=== PATIENT | female | born 1960 | race Two or more races ===

== ENCOUNTER 2017-02-08 17:26 | Emergency (ER) | payer BC ==
[2017-02-08] MEDS ORDERED: Acetaminophen TAB* 325 MG PO ONE (18:47)
[2017-02-08 19:00] VITALS: BP 138/88
--- NOTE | 2017-02-08 19:53 | RAD ---
Indication: RIGHT hip pain radiating down the RIGHT leg and to the lower back. Comparison: January 30, 2004 CT. Technique: AP pelvis and AP and frog-leg lateral views RIGHT hip. Report: The RIGHT hip is normally located and demonstrates preserved joint space. Negative for RIGHT proximal femur or stress reaction or fracture. Minimal bilateral femoral head neck osteophytosis. Negative for pelvic fracture or joint diastases. Unremarkable soft tissue contours. 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
--- NOTE | 2017-02-08 20:01 | RAD ---
Indication: RIGHT lateral hip region pain radiating to the lower back. Comparison: January 30, 2004 CT Technique: AP, lateral, and oblique views lumbar sacral spine. Report: Alignment is anatomic. No cortical disruption or trabecular impaction to indicate a vertebral body fracture. Oblique views without evidence for spondylolysis. Preserved disc spaces. Unremarkable soft tissue contours. IMPRESSION: Negative exam
[2017-02-08] MEDS ORDERED: Ibuprofen TAB* 800 MG PO ONE (20:41)
[2017-02-08] MEDS ORDERED: Cyclobenzaprine TAB* 10 MG PO ONE (20:41)
--- NOTE | 2017-02-17 11:02 | ED ---
Lower Extremity - HPI Summary HPI Summary: Pt here w/ Rt LE pain today - radiates from hip all the way down into toes. No numbness, tingling, weakness. No previous dx of back issues, but has had problems in the past. Denies acute injury to back or leg and no prolonged sitting, hormones, smoking, coagulopathies. Has not tried anything yet as she wasn't sure what was happening. No change in bowel/bladder issues. Pain is worse w/ back, hip movements. She is able to ambulate. - History of Current Complaint Chief Complaint: EDGeneral Stated Complaint: LEG PAIN Time Seen by Provider: 02/08/17 17:45 Hx Obtained From: Patient, Family/Peer Specialist - partner Pain Intensity: 5 Pain Scale Used: 0-10 Numeric - Allergies/Home Medications Allergies/Adverse Reactions: Allergies Allergy/AdvReac Type Severity Reaction Status Date / Time No Known Allergies Allergy Verified 07/21/16 15:28 PMH/Surg Hx/FS Hx/Imm Hx Previously Healthy: Yes Endocrine/Hematology History: Reports: Hx Thyroid Disease Denies: Hx Anticoagulant Therapy, Hx Blood Disorders, Hx Diabetes, Hx Coagulopothy Cardiovascular History: Reports: Hx Hypercholesterolemia, Hx Hypertension Denies: Hx Congestive Heart Failure, Hx Pacemaker/ICD, Other Cardiovascular Problems/Disorders Respiratory History: Reports: Hx Asthma Denies: Hx Chronic Obstructive Pulmonary Disease (COPD) GI History: Denies: Hx Ulcer Musculoskeletal History: Denies: Hx Rheumatoid Arthritis, Hx Osteoporosis - OSTEOPENIA Sensory History: Denies: Hx Hearing Aid Psychiatric History: Denies: Hx Panic Disorder - Surgical History Surgery Procedure, Year, and Place: 1984, 1989 - C-Sections; [facility] Infectious Disease History: No Infectious Disease History: Denies: Hx Clostridium Difficile, Hx Hepatitis, Hx Human Immunodeficiency Virus (HIV), Hx of Known/Suspected MRSA, Hx Shingles, Hx Tuberculosis, Hx Known/ Suspected VRE, Hx Known/Suspected VRSA, History Other Infectious Disease, Traveled Outside the [place] in Last 30 Days - Family History Known Family History: Positive: Hypertension, Respiratory Disease Family History: Father: Blood clot - Social History Lives: With Family Alcohol Use: Rare Hx Substance Use: No Substance Use Type: Reports: None Hx Tobacco Use: Yes Smoking Status (MU): Former Smoker Type: eCigaretteboni Amount Used/How Often: sometimes during each day Length of Time of Smoking/Using Tobacco: 33 years Have You Smoked in the Last Year: No Review of Systems Negative: Fever, Chills Negative: Chest Pain Negative: Shortness Of Breath Gastrointestinal: Negative Positive: no symptoms reported Musculoskeletal: Other - see HPI Skin: Negative Neurological: Negative Psychological: Normal - concerned All Other Systems Reviewed And Are Negative: Yes Physical Exam Triage Information Reviewed: Yes Vital Signs On Initial Exam: Initial Vitals Temp Pulse Resp BP Pulse Ox 98.3 F 82 20 161/79 99 02/08/17 17:28 02/08/17 17:28 02/08/17 17:28 02/08/17 17:28 02/08/17 17:28 Vital Signs Reviewed: Yes Appearance: Positive: Well-Appearing, Pain Distress - mild, Obese Skin: Positive: Warm, Dry - no erythema, no streaking, no varices Head/Face: Positive: Normal Head/Face Inspection Eyes: Positive: Normal, EOMI, Conjunctiva Clear ENT: Positive: Hearing grossly normal Respiratory/Lung Sounds: Positive: Breath Sounds Present Cardiovascular: Positive: Normal, Pulses are Symmetrical in both Upper and Lower Extremities. Negative: Leg Edema Left, Leg Edema Right Musculoskeletal: Positive: Strength/ROM Intact, Pain @ - Rt greater trochanter, SI joint are TTP - leg itself is NTTP; spinous pp NTTP Neurological: Positive: Normal, Sensory/Motor Intact, Alert, Oriented to Person Place, Time, CN Intact II-III Psychiatric: Positive: Normal Diagnostics - Vital Signs Vital Signs Temp Pulse Resp BP Pulse Ox 02/08/17 21:06 97.8 F 68 16 02/08/17 18:59 85 138/88 100 02/08/17 18:04 97.6 F 80 16 116/84 97 02/08/17 17:28 98.3 F 82 20 161/79 99 - Laboratory Lab Statement: Any lab studies that have been ordered have been reviewed, and results considered in the medical decision making process. Re-Evaluation - Re-Evaluation First Eval Change: Improved - leg pain improved s/p tylenol - foot sx resolved Lower Extremity Course/Dx - Diagnoses Provider Diagnoses: Arthritis of right hip, Muscle spasm Discharge - Discharge Plan Condition: Stable Disposition: HOME Prescriptions: Cyclobenzaprine TAB* [Flexeril 10 MG TAB*] 10 mg PO TID PRN #9 tab PRN Reason: Pain Patient Education Materials: Osteoarthritis (ED), Muscle Spasm (ED) Referrals: Joel Lvoe MD [Primary Care Provider] - Additional Instructions: Rest You appear to have a flair up of arthritis with muscle spasm. You may apply ice alternating with heat and gentle stretches. You may also try topical rubs along thigh (ie. biofreeze, etc) You may take acetaminophen alternating with ibuprofen with food for pain. If muscle feels tight and you have difficulty sleeping, you may take a muscle relaxer - this has been sent to pharmacy for you. Follow-up with your PCP next week - call tomorrow to schedule an appointment. *If you develop numbness, weakness return to ED
== END 2017-02-08 21:06 | disposition home or self-care (01) ==
LOC: ED 17:26
DX: M16.11 Unilateral primary osteoarthritis, right hip (principal); M79.604 Pain in right leg; Z87.891 Personal history of nicotine dependence; M62.838 Other muscle spasm
CPT/HCPCS: 72110; 99282; A9270-GY

== ENCOUNTER 2019-09-02 09:18 | Emergency (ER) | payer BC ==
[2019-09-02] MEDS ORDERED: NS 0.9% 1000 ML** 1,000 ML IV ONE (09:42)
[2019-09-02] MEDS ORDERED: Albuterol/Ipratropium NEB.SOL* Albuterol 2.5 MG/Ipratropium 0.5 MG 3 ML INH ONE (09:42)
[2019-09-02] MEDS ORDERED: methylPREDNISolone 125 MG* 2 ML VIAL IV ONE (09:42)
--- NOTE | 2019-09-02 09:49 | ED ---
Respiratory - HPI Summary HPI Summary: This pt is a 58 y/o female, with hx of asthma, COPD, presenting to [facility] c/o nonproductive cough that began 2 days ago. Pt also reports SOB that became worse this morning. She states this morning she had a difficult time breathing. She notes her chest felt tight with coughing. Pt took Mucinex last night with mild relief, states her cough started loosing up this morning. Denies fever, chills, nausea, vomiting. PMHx includes HTN, thyroid disease, high cholesterol. Pt is a current smoker. - History of Current Complaint Chief Complaint: EDAsthma Stated Complaint: SOB PER PT Time Seen by Provider: 09/02/19 09:38 Hx Obtained From: Patient Onset/Duration: Lasting Days, Still Present, Worse Since - this morning Timing: Constant Current Severity: Moderate Pain Intensity: 6 Character: Cough (Nonproductive) Aggravating Factor(s): Nothing Alleviating Factor(s): Nothing Associated Signs and Symptoms: SOB, Chest Pain with Cough - Allergy/Home Medications Allergies/Adverse Reactions: Allergies Allergy/AdvReac Type Severity Reaction Status Date / Time No Known Allergies Allergy Verified 09/02/19 09:21 Home Medications: Home Medications Albuterol HFA INHALER* [Ventolin HFA Inhaler*] 1 - 2 puff INH Q4H PRN 09/02/19 [ History Confirmed 09/02/19] Budesonide/Formote 160/4.5(NF) [Symbicort 160/4.5 (NF)] 2 puff INH BID 09/02/19 [History Confirmed 09/02/19] Doxycycline Hyclate 100 mg PO DAILY 09/02/19 [History Confirmed 09/02/19] Hydrochlorothiazide TAB* [Hydrodiuril TAB*] 12.5 mg PO DAILY 09/02/19 [History Confirmed 09/02/19] Valsartan TAB* [Diovan TAB*] 160 mg PO DAILY 09/02/19 [History Confirmed ] PMH/Surg Hx/FS Hx/Imm Hx Endocrine/Hematology History: Reports: Hx Thyroid Disease Denies: Hx Anticoagulant Therapy, Hx Blood Disorders, Hx Diabetes Cardiovascular History: Reports: Hx Hypercholesterolemia, Hx Hypertension Denies: Hx Congestive Heart Failure, Hx Pacemaker/ICD, Other Cardiovascular Problems/Disorders Respiratory History: Reports: Hx Asthma, Hx Chronic Obstructive Pulmonary Disease (COPD) GI History: Denies: Hx Ulcer Musculoskeletal History: Denies: Hx Rheumatoid Arthritis, Hx Osteoporosis Sensory History: Denies: Hx Hearing Aid Psychiatric History: Denies: Hx Panic Disorder - Surgical History Surgical History: Yes Surgery Procedure, Year, and Place: 1984, 1989 - [facility]; [facility] 2013 Infectious Disease History: No Infectious Disease History: Denies: Hx Clostridium Difficile, Hx Hepatitis, Hx Human Immunodeficiency Virus (HIV), Hx of Known/Suspected MRSA, Hx Shingles, Hx Tuberculosis, Hx Known/ Suspected VRE, Hx Known/Suspected VRSA, History Other Infectious Disease, Traveled Outside the [place] in Last 30 Days - Family History Known Family History: Positive: Hypertension, Respiratory Disease Family History: Father: Blood clot - Social History Alcohol Use: Rare Hx Substance Use: No Substance Use Type: Reports: None Hx Tobacco Use: Yes Smoking Status (MU): Current Every Day Smoker Type: eCigarettes Amount Used/How Often: sometimes during each day Length of Time of Smoking/Using Tobacco: 33 years Have You Smoked in the Last Year: No Cessation Counseling: Patient Advised to Stop Review of Systems Negative: Fever, Chills Positive: Chest Pain Positive: Shortness Of Breath, Cough All Other Systems Reviewed And Are Negative: Yes Physical Exam - Summary Physical Exam Summary: GENERAL: Patient is a well-developed and nourished female who is lying comfortable in the stretcher. Patient is not in any acute respiratory distress. HEAD AND FACE: No signs of trauma. No ecchymosis, hematomas or skull depressions. No sinus tenderness. EYES: PERRLA, EOMI x 2, No injected conjunctiva, no nystagmus. EARS: Hearing grossly intact. Ear canals and tympanic membranes are within normal limits. MOUTH: Oropharynx within normal limits. NECK: Supple, trachea is midline, no adenopathy, no JVD, no carotid bruit, no c- spine tenderness, neck with full ROM. CHEST: Symmetric, no tenderness at palpation LUNGS: Decreased breath sounds bilaterally. Wheezing. CVS: Regular rate and rhythm, S1 and S2 present, no murmurs or gallops appreciated. ABDOMEN: Soft, non-tender. No signs of distention. No rebound no guarding, and no masses palpated. Bowel sounds are normal. EXTREMITIES: FROM in all major joints, no edema, no cyanosis or clubbing. NEURO: Alert and oriented x 3. No acute neurological deficits. Speech is normal and follows commands. SKIN: Dry and warm Triage Information Reviewed: Yes Vital Signs On Initial Exam: Initial Vitals Temp Pulse Resp BP Pulse Ox 97.2 F 108 22 151/95 96 09/02/19 09:19 12 09:19 12 09:19 09/02/19 09:19 09/02/19 09:19 Vital Signs Reviewed: Yes Procedures - Sedation Patient Received Moderate/Deep Sedation with Procedure: No Diagnostics - Vital Signs Vital Signs Temp Pulse Resp BP Pulse Ox 09/02/19 09:19 97.2 F 108 22 151/95 96 - Laboratory Result Diagrams: 09/02/19 10:01 09/02/19 10:01 Lab Statement: Any lab studies that have been ordered have been reviewed, and results considered in the medical decision making process. - Radiology Chest XR Radiology Interpretation Completed By: Radiologist Summary of Radiographic Findings: IMPRESSION: No evidence for active cardiopulmonary disease. Dr. Coley has reviewed this report. - EKG 09:52 Cardiac Rate: NL - at 95 bpm EKG Rhythm: Sinus Rhythm EKG Comparison: No Significant Change - similar to prior on 03/24/16. Summary of EKG Findings: EKG at 09:52 shows normal sinus rhythm at a rate of [address] elevations. Similar to previous EKG. Re-Evaluation - Re-Evaluation First Eval Re-Evaluation Time: 12:49 Change: Improved Comment: Pt is feeling better after medications. She was advised to stop smoking. Pt will be discharged home. Disposition - Course Assessment/Plan: This patient is a 58-year-old female who presents to the emergency department with a chief complaint of having shortness of breath and productive cough. Past medical history: Asthma, COPD, hypertension, hypothyroidism. Blood work without a significant abnormality except for chloride 100, glucose 104, and CRP of 9.3. Chest x-ray impression: no acute pathology. In the ED course the patient was given IV fluids, DuoNebs and Solu- Medrol. After the patient was given these medications the patients symptoms have subsided. The patient is feeling better and has no other complaints. I discussed all the findings and test results with the patient. Patient was instructed to return to the emergency room immediately if any of the symptoms return or worsen . Plan of care was discussed with the patient and understands and agrees. All questions were answered at patient satisfaction. There were no further complaints or concerns. Lung exam before discharge: CTA B/L. Good air exchange. No wheezing or crackles heard. CVS: S1 and S2 present. No murmurs appreciated. Patient is alert and oriented x 3. Patient is hemodynamically stable. Patient will be discharged home with follow up from her PCP in the next 2-3 days. - Differential Dx - Cardiopulmonary Differential Diagnoses - Cardiopulmonary: Asthma, CHF, Exacerbation Of COPD, Hypoxia, Sinusitis - Diagnoses Provider Diagnoses: COPD exacerbation Discharge ED - Sign-Out/Discharge Documenting (check all that apply): Patient Departure - Discharge home - Discharge Plan Condition: Stable Disposition: HOME Prescriptions: predniSONE TAB* [Deltasone 20 MG TAB*] 40 mg PO DAILY #10 tab Patient Education Materials: How to Stop Smoking (ED), COPD (Chronic Obstructive Pulmonary Disease) (ED) Forms: *Work Release Referrals: Joel Love MD [Primary Care Provider] - Additional Instructions: FOLLOW UP WITH YOUR PRIMARY CARE PROVIDER IN 2-3 DAYS. RETURN TO THE EMERGENCY DEPARTMENT FOR ANY WORSENING OR NEW SYMPTOMS. - Billing Disposition and Condition Condition: STABLE Disposition: Home - Attestation Statements Document Initiated by Anne: Yes Documenting Shardaibe: Manuela Montgomery Provider For Whom Anne is Documenting (Include Credential): Carl Coley MD Scribvictorina Attestation: Manuela Maya scribed for Carl Coley MD on 09/03/19 at 1838. Scribe Documentation Reviewed: Yes Provider Attestation: The documentation as recorded by the Manuela carlos accurately reflects the service I personally performed and the decisions made by , Carl Coley MD Status of Scribe Document: Viewed
[2019-09-02] MEDS ORDERED: Albuterol/Ipratropium NEB.SOL* Albuterol 2.5 MG/Ipratropium 0.5 MG 3 ML ONE (10:04)
[2019-09-02 10:16] LABS: ABS Eosinophils 0.2 10^3/ul (0-0.6); ABS Lymphocytes 1.2 10^3/ul (1.0-4.8); ABS Monocytes 0.7 10^3/ul (0-0.8); ABS Neutrophils 4.7 10^3/ul (1.5-7.7); Eosinophil % 3.6 %; Hematocrit 43 % (35-47); Hemoglobin 14.1 g/dL (12.0-16.0); Lymphocyte % 17.5 %; Mean Corpuscular HGB Conc 33 g/dL (31-36); Mean Corpuscular Hemoglobin 28 pg (27-31); Mean Corpuscular Volume 84 fL (80-97); Mean Platelet Volume 9.1 fL (7.4-10.4); Nucleated Red Blood Cells % 0.1; Platelet Count 245 10^3/uL (150-450); Red Cell Distribution Width 14 % (10-15); White Blood Count 6.8 10^3/uL (3.5-10.8)
[2019-09-02 10:38] LABS: Albumin 4.5 g/dL (3.2-5.2); Albumin/Globulin Ratio 1.5 (1-3); BUN/Creatinine Ratio 12.9 (8-20); C Reactive Protein 9.3 mg/L (<8.01); Calcium 9.8 mg/dL (8.6-10.3); EGFR African American 83.4 (>60); EGFR Non-African American 68.9 (>60); Potassium 3.6 mmol/L (3.5-5.0); Total Bilirubin 0.4 mg/dL (0.2-1.0); Total Protein 7.5 g/dL (6.4-8.9)
[2019-09-02 11:02] LABS: Urine Appearance Clear; Urine Bilirubin Negative (Negative); Urine Blood Negative (Negative); Urine Color Yellow; Urine Glucose Negative (Negative); Urine Ketones Negative (Negative); Urine Nitrite Negative (Negative); Urine Protein Negative (Negative); Urine Specific Gravity 1.012 (1.010-1.030); Urine Urobilinogen Negative (Negative)
[2019-09-02 11:07] LABS: Urine Bacteria Absent (Absent); Urine Red Blood Cell 1+(3-5/hpf) (Absent); Urine Squamous Epithelial Cell Present (Absent); Urine White Blood Cell Trace(0-5/hpf) (Absent)
[2019-09-02 13:07] VITALS: BP 147/76
--- NOTE | 2019-09-04 12:05 | ED ---
Imaging and Labs Follow Up Follow Up Type: Labs/Cultures Labs/Culture Result: Urine culture growing 25-50k GBS. Patient Communication/Plan: Pt. seen in ED for cough and SOB. No reports of urinary sxs based on ED note. Will not treat at this time given low colony count and asymptomatic. Provider Diagnoses: COPD exacerbation
== END 2019-09-02 13:01 | disposition home or self-care (01) ==
LOC: ED 09:18
DX: J44.1 Chronic obstructive pulmonary disease with (acute) exacerbation (principal); E07.9 Disorder of thyroid, unspecified; E78.00 Pure hypercholesterolemia, unspecified; I10 Essential (primary) hypertension; F17.290 Nicotine dependence, other tobacco product, uncomplicated; Z79.899 Other long term (current) drug therapy
CPT/HCPCS: 36415; 71045; 80053; 81003; 81015; 83605; 83880; 84484; 85025; 86140; 87077; 87086; 93005; 96361; 96374; 99284; A9270-GY; J2930

== ENCOUNTER 2021-08-30 07:24 | Observation (INO) ==
[2021-08-30 08:16] LABS: ABS Eosinophils 0.2 10^3/ul (0-0.6); ABS Lymphocytes 2.3 10^3/ul (1.0-4.8); ABS Monocytes 0.5 10^3/ul (0-0.8); ABS Neutrophils 3.6 10^3/ul (1.5-7.7); Eosinophil % 2.6 %; Hematocrit 37 % (35-47); Lymphocyte % 35.4 %; Mean Corpuscular HGB Conc 33 g/dL (31-36); Mean Corpuscular Hemoglobin 27 pg (27-31); Mean Corpuscular Volume 84 fL (80-97); Mean Platelet Volume 8.5 fL (7.4-10.4); Nucleated Red Blood Cells % 0.1; Platelet Count 229 10^3/uL (150-450); Red Cell Distribution Width 14 % (10-15); White Blood Count 6.6 10^3/uL (3.5-10.8)
[2021-08-30 08:31] LABS: INR 0.99 (0.86-1.15)
[2021-08-30 08:32] LABS: Albumin 4.1 g/dL (3.2-5.2); Albumin/Globulin Ratio 1.5 (1-3); Calcium 9.1 mg/dL (8.6-10.3); Globulin 2.7 g/dL (2-4); Potassium 3.9 mmol/L (3.5-5.0); Total Bilirubin 0.5 mg/dL (0.2-1.0); Total Protein 6.8 g/dL (6.4-8.9); eGFR CKD-EPI 83.6 (>60)
[2021-08-30] MEDS ORDERED: Iohexol 300 (CONTRAST) 10 ML SDV IV ONE (10:27)
[2021-08-30 10:43] LABS: Rapid COVID-19 Molecular Undetected (Undetected)
[2021-08-30] MEDS ORDERED: Albuterol HFA INHALER 8 gm MDI INH PRN (11:45)
[2021-08-30] MEDS ORDERED: PEG 3000 GI LAVAGE 1 GALLON PO ONE (11:45)
[2021-08-30 17:06] LABS: Hematocrit 36 % (35-47); Hemoglobin 11.9 g/dL (12.0-16.0)
[2021-08-30] MEDS: Fluticasone-Salmeterol 250-50 DISKUS INH SCH (19:51)
[2021-08-31 05:31] LABS: ABS Eosinophils 0.2 10^3/ul (0-0.6); ABS Lymphocytes 2.4 10^3/ul (1.0-4.8); ABS Monocytes 0.3 10^3/ul (0-0.8); ABS Neutrophils 2.3 10^3/ul (1.5-7.7); Eosinophil % 3.6 %; Hematocrit 36 % (35-47); Hemoglobin 11.5 g/dL (12.0-16.0); Lymphocyte % 45.9 %; Mean Corpuscular HGB Conc 32 g/dL (31-36); Mean Corpuscular Hemoglobin 28 pg (27-31); Mean Corpuscular Volume 87 fL (80-97); Mean Platelet Volume 8.6 fL (7.4-10.4); Nucleated Red Blood Cells % 0.1; Platelet Count 228 10^3/uL (150-450); Red Blood Count 4.17 10^6 /uL (3.70-4.87); Red Cell Distribution Width 14 % (10-15); White Blood Count 5.2 10^3/uL (3.5-10.8)
[2021-08-31 05:44] LABS: Calcium 9.1 mg/dL (8.6-10.3); Potassium 3.6 mmol/L (3.5-5.0); eGFR CKD-EPI 90.2 (>60)
[2021-08-31] MEDS: Fluticasone-Salmeterol 250-50 DISKUS INH SCH (07:47)
[2021-08-31 09:12] VITALS: BP 134/68
== END 2021-08-31 11:10 | disposition home or self-care (01) ==
LOC: EDHOLD 07:24 → ED 07:24 → MED 14:58
PROVIDERS: ADMIT Internal Medicine; ATTEND Internal Medicine

== ENCOUNTER 2023-08-20 01:52 | Inpatient (IN) ==
[2023-08-20] MEDS ORDERED: Morphine 4 MG/ML VIAL (1 ml) IV ONE (02:10)
[2023-08-20] MEDS ORDERED: Albuterol/Ipratropium NEB.SOL (2.5/0.5 MG) 3 ML NEB.SOLN INH ONE (02:10)
[2023-08-20 02:19] LABS: Hematocrit 43.7 % (35-45); Mean Corpuscular Hemoglobin 26.9 pg (27-33); Mean Corpuscular Volume 83.8 fL (80-97); Mean Platelet Volume 8.8 fL (7.5-11.2); Platelet Count 334 10^3/uL (150-450); Red Blood Count 5.21 10^6/uL (3.63-4.92); Red Cell Distribution Width 14.8 % (12-17); White Blood Count 15.6 10^3/uL (3.8-11.8)
[2023-08-20 02:25] LABS: INR 0.94 (0.83-1.13)
[2023-08-20] MEDS ORDERED: Iodixanol (CONTRAST) 320 MG/ML 100 ML SDV IV ONE (02:25)
[2023-08-20 02:36] LABS: ALT 26 U/L (7-52); AST 18 U/L (13-39); Albumin 4.3 g/dL (3.2-5.2); Albumin/Globulin Ratio 1.5 (1-3); Alkaline Phosphatase 80 U/L (35-149); Anion Gap 9 mmol/L (2-16); Blood Urea Nitrogen 17 mg/dL (6-24); CO2 Carbon Dioxide 28 mmol/L (22-32); Calcium 9.3 mg/dL (8.6-10.3); Chloride 103 mmol/L (101-111); Creatinine, Serum 0.84 mg/dL (0.51-0.95); Globulin 2.9 g/dL (2-4); Glucose 105 mg/dL (70-100); Potassium 3.6 mmol/L (3.5-5.0); Sodium 140 mmol/L (135-145); Total Bilirubin 0.4 mg/dL (0.2-1.0); Total Protein 7.2 g/dL (6.4-8.9)
[2023-08-20] MEDS ORDERED: cefTRIAXone 1 gm/50 mL D5W 1 GM/50 ML BAG IV ONE (02:40)
[2023-08-20] MEDS ORDERED: Azithromycin 500 mg/250 ml NS 500 MG/250 ML BAG IVPB ONE (02:40)
[2023-08-20 02:41] LABS: High Sens Troponin Baseline < 3 pg/mL (<15)
[2023-08-20 02:51] LABS: ABS Basophils 0.1 10^3/uL (0.0-0.1); ABS Lymphocytes 2.4 10^3/uL (1.0-4.8); ABS Monocytes 0.8 10^3/uL (0.0-0.9); ABS Neutrophils 12.3 10^3/uL (1.5-7.6); ABS Nucleated RBC 0.02 10^3/ul; Eosinophil % 0.2 %; Lymphocyte % 15.6 %; Nucleated Red Blood Cells % 0.1 %/100WBC (0.0-0.8); RBC Morphology Normal (Normal)
[2023-08-20 03:58] LABS: High Sensitivity Troponin 1 Hr < 3 pg/mL (<15)
[2023-08-20] MEDS ORDERED: NF:Linaclotide 290 mcg CAP (NF) PO PRN (05:26)
[2023-08-20] MEDS ORDERED: Albuterol HFA INHALER 8 gm MDI INH PRN (05:26)
[2023-08-20] MEDS ORDERED: Albuterol 2.5mg/3 ml (0.083%) NEB.SOLN INH PRN (05:28)
[2023-08-20] MEDS: Enoxaparin 40 MG/0.4 ML SYR SUBCUT SCH (06:20)
[2023-08-20] MEDS: Mometasone/Formoter 200/5 MDI INH SCH ×2 (07:03→19:46)
[2023-08-20] MEDS ORDERED: Morphine 2 MG/ML SYRINGE IV ONE (09:27)
[2023-08-20] MEDS ORDERED: Morphine 2 MG/ML SYRINGE IV PRN (20:27)
[2023-08-21] MEDS ORDERED: Azithromycin 500 mg/250 ml NS 500 MG/250 ML BAG IVPB SCH ×2 (05:00)
[2023-08-21] MEDS ORDERED: cefTRIAXone 1 gm/50 mL D5W 1 GM/50 ML BAG IV SCH ×2 (05:00)
[2023-08-21] MEDS: Enoxaparin 40 MG/0.4 ML SYR SUBCUT SCH (05:45)
[2023-08-21 07:59] LABS: ABS Basophils 0.1 10^3/uL (0.0-0.1); ABS Eosinophils 0.2 10^3/uL (0.0-0.5); ABS Lymphocytes 2.4 10^3/uL (1.0-4.8); ABS Monocytes 1.1 10^3/uL (0.0-0.9); ABS Neutrophils 12.7 10^3/uL (1.5-7.6); ABS Nucleated RBC 0.01 10^3/ul; Eosinophil % 1.4 %; Hematocrit 36.3 % (35-45); Hemoglobin 11.8 g/dL (11.5-14.3); Lymphocyte % 14.7 %; Mean Corpuscular Hgb Conc 32.4 g/dL (31-36); Mean Corpuscular Volume 83.3 fL (80-97); Mean Platelet Volume 8.5 fL (7.5-11.2); Nucleated Red Blood Cells % 0.1 %/100WBC (0.0-0.8); Platelet Count 244 10^3/uL (150-450); Red Blood Count 4.36 10^6/uL (3.63-4.92); Red Cell Distribution Width 14.9 % (12-17); White Blood Count 16.5 10^3/uL (3.8-11.8)
[2023-08-21] MEDS: Mometasone/Formoter 200/5 MDI INH SCH (09:45)
[2023-08-21 09:51] VITALS: BP 125/60
[2023-08-21 10:03] LABS: Calcium 8.6 mg/dL (8.6-10.3); Creatinine, Serum 0.79 mg/dL (0.51-0.95); Potassium 3.7 mmol/L (3.5-5.0); eGFR CKD-EPI 85.1 (>60)
== END 2023-08-21 15:00 | disposition home or self-care (01) | DRG 720 ==
LOC: ED 01:52 → EDHOLD 04:45 → MEDTELE 11:22
PROVIDERS: ADMIT Internal Medicine; ATTEND Internal Medicine